=== PATIENT | female | born 1990 | race Caucasian/White ===

== ENCOUNTER 2020-05-06 10:59 | Emergency (ER) | payer SELFPAY ==
[~2020-05-06] VITALS: Ht 170.2 cm; Wt 82.1 kg
[2020-05-06 11:07] VITALS: Ht 170.2 cm; Wt 82.1 kg
== END 2020-05-06 12:00 | disposition home or self-care (01) ==
LOC: ED 10:59
DX: S60.211A Contusion of right wrist, initial encounter (principal); J45.909 Unspecified asthma, uncomplicated; W20.8XXA Other cause of strike by thrown, projected or falling object, initial encounter; Y93.89 Activity, other specified; Y92.89 Other specified places as the place of occurrence of the external cause; Y99.8 Other external cause status